=== PATIENT | female | born 1995 | race Caucasian/White ===

== ENCOUNTER 2019-08-05 05:56 | Emergency (ER) | payer MEDICAID, OTHER ==
[~2019-08-05] VITALS: Ht 160 cm; Wt 54.4 kg
[2019-08-05] MEDS ORDERED: HYDROcodone-ACET 10/325MG TAB PO ONE ×2 (06:45→12:15)
[2019-08-05] MEDS ORDERED: SODIUM CHLORIDE 0.9% 1,000 ML IV ONE (10:32)
[2019-08-05] MEDS ORDERED: ceFAZolin 1GM/50ML 50 ML IV ONE (10:45)
[2019-08-05 11:50] VITALS: BP 123/78
== END 2019-08-05 13:08 | disposition home or self-care (01) ==
LOC: ER 05:56 → UNDOADMIN 05:57 → OVERFLOW 05:57
DX: S02.600A Fracture of unspecified part of body of mandible, unspecified side, initial encounter for closed fracture (principal); F17.210 Nicotine dependence, cigarettes, uncomplicated; F15.10 Other stimulant abuse, uncomplicated; V43.62XA Car passenger injured in collision with other type car in traffic accident, initial encounter; Y93.89 Activity, other specified; Y92.410 Unspecified street and highway as the place of occurrence of the external cause; Y99.8 Other external cause status
CPT/HCPCS: 36415; 70486; 84702; 96365; 99284; J0690

== ENCOUNTER 2021-06-10 01:09 | Emergency (ER) | payer MEDICAID, OTHER ==
[~2021-06-10] VITALS: Ht 160 cm; Wt 52.2 kg
[2021-06-10 01:24] VITALS: BP 165/98
== END 2021-06-10 06:50 | disposition left against medical advice (07) ==
LOC: ER 01:12
DX: H92.02 Otalgia, left ear (principal); F42.8 Other obsessive-compulsive disorder; F15.10 Other stimulant abuse, uncomplicated; F17.210 Nicotine dependence, cigarettes, uncomplicated

== ENCOUNTER 2023-12-25 11:01 | Emergency (ER) | payer MEDICAID ==
[~2023-12-25] VITALS: Ht 162.6 cm; Wt 62.8 kg
[2023-12-25 11:11] VITALS: BP 138/79; PULSE 96; RESP 20; O2SAT 97
[2023-12-25] MEDS ORDERED: AUG875T PO (12:31)
[2023-12-25] MEDS ORDERED: NAP500T PO (12:31)
[2023-12-25] MEDS: KETOROLAC TROMETH 30 MG/ML 1ML VIAL IM ONE (13:00)
[2023-12-25] MEDS: cefTRIAXone SOD 1,000 MG VL IM ONE (13:00)
[2023-12-25] MEDS: NEOMYCIN-BACITRACIN-POLYM UNITDOSE PKG TOP OINT TOP ONE (13:00)
[2023-12-25] MEDS: TETANUS-DIPTH-ACEL PERTUSSIS 0.5ML SYR Tdap IM ONE (13:01)
== END 2023-12-25 12:48 | disposition home or self-care (01) ==
LOC: ER 11:01
DX: S61.531A Puncture wound without foreign body of right wrist, initial encounter (principal); F17.210 Nicotine dependence, cigarettes, uncomplicated; F15.90 Other stimulant use, unspecified, uncomplicated; Z79.899 Other long term (current) drug therapy; W54.0XXA Bitten by dog, initial encounter; Y93.89 Activity, other specified; Y92.89 Other specified places as the place of occurrence of the external cause; Y99.8 Other external cause status
CPT/HCPCS: 90471; 90715; 96372; 99284; J0696; J1885